=== PATIENT | female | born 1975 | race Caucasian/White ===

== ENCOUNTER 2017-07-15 09:21 | Emergency (ER) | payer OTHER ==
[2017-07-15 09:28] VITALS: TEMP 98.1
--- NOTE | 2017-07-15 09:30 | EDPHY ---
H & P Stated Complaint: 1 wk intermittent mid sternal cp/difficult to take deep breath Time Seen by Provider: 07/15/17 09:30 - Personal History LMP (Females 10-55): 15-21 Days Ago Current Tetanus Diphtheria and Acellular Pertussis (TDAP): Yes - Medical/Surgical History Hx Asthma: No Hx Chronic Respiratory Disease: No Hx Diabetes: No Hx Cardiac Disease: No Hx Renal Disease: No Hx Cirrhosis: No Hx Alcoholism: No Hx HIV/AIDS: No Hx Splenectomy or Spleen Trauma: No Other PMH: denies - Social History Smoking Status: Never smoked Constitutional: Initial Vital Signs Temperature (C) 36.7 C 07/15/17 09:26 Heart Rate 66 07/15/17 09:26 Respiratory Rate 18 07/15/17 09:26 Blood Pressure 157/100 H 07/15/17 09:26 O2 Sat (%) 98 07/15/17 09:26 O2 Delivery Mode Room Air Allergies/Adverse Reactions: No Known Drug Allergies Allergy (Unknown, Verified 07/15/17 09:25) Unknown Home Medications: Medication Instructions Recorded Parajorge Iud 07/15/17 Medical Decision Making - Diagnostics Imaging Results: Imaging Impressions Chest X-Ray 07/15/17 09:44 IMPRESSION: Normal chest x-ray. Imaging: I viewed and interpreted images myself ED Course/Re-evaluation: CHIEF COMPLAINT: Chest pain. HISTORY OF PRESENT ILLNESS: This patient is a 42 year old female complaining of chest pain. About one week ago, she developed a constant dull pain underneath her sternum. Two days later, she developed an ache down her left arm, particularly around her shoulder and triceps. The did not seem consistent with her usual musculoskeletal soreness. These symptoms were intermittent over the last week and she has felt considerably fatigued. The patient recently travelled to [place] by plane to visit her sister, but denies any prolonged sedentary periods. Yesterday , she had to leave work as she felt nauseous, fatigued, and lightheaded. She feels it is more difficult to catch her breath and as if it takes "longer to breathe". Two days ago, she had heartburn symptoms which are unusual for her. She has also noted bilateral paresthesias in her palms. Currently, her substernal chest pain persists but it is very dull. She has history of CAD in her mother and maternal grandfather. She denies any personal history of known heart abnormalities. REVIEW OF SYSTEMS: A 10 point review of systems was performed and is negative with the exception of the elements mentioned in the history of present illness. PHYSICAL EXAM: HR, BP, O2 Sat, RR. Temp noted General Appearance: Alert, well hydrated, appropriate, and non-toxic appearing. Head: Atraumatic without scalp tenderness or obvious injury Eyes: Pupils equal, round, reactive to light and accommodation, EOMI, no trauma , no injection. Ears: Clear bilaterally, no perforation, normal landmarks Nose: Atraumatic, no rhinorrhea, clear. Throat: There is no erythema or exudates, no lesions, normal tonsils, mucus membranes moist. Neck: Supple, 2+ carotid upstroke, nontender, no lymphadenopathy. Respiratory: No retractions, no distress, no wheezes, and no accessory muscle use. Lungs are clear to auscultation bilaterally. Cardiovascular: Regular rate and rhythm, no murmurs, rubs, or gallops. Bilateral carotid, radial, dorsalis pedis, and posterior tibial pulses intact. Good capillary refill all extremities. Gastrointestinal: Abdomen is soft, nontender, non-distended, no masses, no rebound, no guarding, no peritoneal signs. Musculoskeletal: Normal active ROM of all extremities, atraumatic. Neurological: Alert, appropriate, and interactive. The patient has normal DTRs and non-focal cranial nerves, motor, sensory, and cerebellar exam. Skin: No rashes, good turgor, no nodules on palpation. Past medical history: Denies. Past surgical history: Noncontributory. Family history: Positive for CAD in mother and maternal grandmother. Social history: Lives in [place]. Employed. Nonsmoker. DIAGNOSTICS/PROCEDURES/CRITICAL CARE TIME: The 12 lead EKG was interpreted by myself. See hard copy and/or "tracemaster" electronic copy for interpretation. Sinus rhythm. Incomplete RBBB. DIFFERENTIAL DIAGNOSIS: The differential diagnosis for the patient's chest pain included but was not limited to myocardial ischemia, pulmonary embolus, chest wall pain, pleural inflammation, and pulmonary infectious causes. MEDICAL DECISION MAKIN42 year old female presents with one week history of substernal chest pains and left arm ache. Exam unremarkable. Plan for EKG, chest x-ray, labs including CBC , chemistries, Troponin, D-dimer, BNP. EKG shows sinus rhythm. 10:30 Reviewed laboratory studies. D-dimer and troponin negative. Troponin sensitive as the patient's pain has been ongoing for several days. Plan to consult with cardiology to establish followup for provocative outpatient study. Reviewed chest x-ray. Normal appearance. 11:00 I have been paging [facility] for 30 minutes with no response. This patient needs an outpatient provocative study in the next 24-48 hours. She will call for an appointment. 11:02 Reassessed patient. Discussed results and cardiology followup. Plan to discharge home in good condition. She will call [facility] today for an appointment and will call the emergency department if she has any difficulty setting up this appointment. She is comfortable with this plan. - Data Points Laboratory Results: Laboratory Results 07/15/17 09:45 07/15/17 09:45 07/15/17 07/15/17 07/15/17 09:45 09:45 09:45 WBC 5.75 10^3/uL 10^3/uL (3.80-9.50) RBC 4.73 10^6/uL 10^6/uL (4.18-5.33) Hgb 14.7 g/dL g/dL (12.6-16.3) Hct 43.6 % % (38.0-47.0) MCV 92.2 fL fL (81.5-99.8) MCH 31.1 pg pg (27.9-34.1) MCHC 33.7 g/dL g/dL (32.4-36.7) RDW 13.6 % % (11.5-15.2) Plt Count 270 10^3/uL 10^3/uL (150-400) MPV 9.5 fL fL (8.7-11.7) Neut % (Auto) 60.0 % % (39.3-74.2) Lymph % (Auto) 30.3 % % (15.0-45.0) [place] % (Auto) 7.5 % % (4.5-13.0) Eos % (Auto) 1.0 % % (0.6-7.6) Baso % (Auto) 0.7 % % (0.3-1.7) Nucleat RBC Rel Count 0.0 % % (0.0-0.2) Absolute Neuts (auto) 3.45 10^3/uL 10^3/uL (1.70-6.50) Absolute Lymphs (auto) 1.74 10^3/uL 10^3/uL (1.00-3.00) Absolute Monos (auto) 0.43 10^3/uL 10^3/uL (0.30-0.80) Absolute Eos (auto) 0.06 10^3/uL 10^3/uL (0.03-0.40) Absolute Basos (auto) 0.04 10^3/uL 10^3/uL (0.02-0.10) Absolute Nucleated RBC 0.00 10^3/uL 10^3/uL (0-0.01) Immature Gran % 0.5 % % (0.0-1.1) Immature Gran # 0.03 10^3/uL 10^3/uL (0.00-0.10) D-Dimer < 0.27 ug/mLFEU ug/mLFEU (0.00-0.50) Sodium 142 mEq/L mEq/L (135-145) Potassium 4.4 mEq/L mEq/L (3.5-5.2) Chloride 107 mEq/L mEq/L (97-110) Carbon Dioxide 23 mEq/l mEq/l (22-31) Anion Gap 12 mEq/L mEq/L (8-16) BUN 11 mg/dL mg/dL (7-23) Creatinine 0.8 mg/dL mg/dL (0.6-1.0) Estimated GFR > 60 Glucose 88 mg/dL mg/dL (70-100) Calcium 9.9 mg/dL mg/dL (8.5-10.4) Troponin I < 0.012 ng/mL ng/mL (0.000-0.034) NT-Pro-B Natriuret Pep 155 pg/mL H pg/mL (0-125) Departure - Departure Disposition: Home, Routine, Self-Care Clinical Impression: Chest pain Qualifiers: Chest pain type: other chest pain Qualified Code(s): R07.89 - Other chest pain Condition: Good Instructions: Chest Pain (ED) Additional Instructions: Follow up with a apartment house manager for further testing, as soon as possible in the next 24-48 hours. We have referred you to our apartment house manager certified indoor environmentalist as well as the local apartment house manager group. Please call for an appointment today. If you have any difficulty with this, please call the Emergency Department. Follow-up with your primary doctor within 2-3 days. Return to the Emergency Department for fever, chest pain, shortness of breath, increasing pain or other worsening of condition. Referrals: Kana Berman MD [Medical Doctor] - As per Instructions Hollie Bui MD [Primary Care Provider] - As per Instructions [facility] [Provider Group] - As per Instructions Report Scribed for: Vinay Pappas Report Scribed by: Jaylin Nguyen Date of Report: 07/15/17 Time of Report: 10:24
--- NOTE | 2017-07-15 09:35 | CPEKG ---
Heart Rate: 74 RR Interval: 811 P-R Interval: 196 QRSD Interval: 110 QT Interval: 392 QTC Interval: 435 P [place]: 38 QRS [place]: 52 T Wave [place]: 41 EKG Severity - ABNORMAL ECG - EKG Impression: SINUS RHYTHM EKG Impression: INCOMPLETE RIGHT BUNDLE BRANCH BLOCK Electronically Signed By: Vinay Pappas 15-Jul-2017 14:09:33
[2017-07-15 09:57] LABS: PLATELET COUNT 270 10^3/uL (150-400)
[2017-07-15 11:11] VITALS: BP 121/73; PULSE 64; RESP 16; O2SAT 97
== END 2017-07-15 11:07 | disposition home or self-care (01) ==
DX: R07.89 Other chest pain (principal); I25.10 Atherosclerotic heart disease of native coronary artery without angina pectoris